=== PATIENT | male | born 1985 | race African-American/Black ===

== ENCOUNTER 2020-03-30 02:58 | Emergency (ER) | payer MEDICAID ==
[~2020-03-30] VITALS: Ht 167.6 cm; Wt 79.4 kg
[~2020-03-30 02:58] MED LIST: AUGMENTIN 875-1 EAC1 ORAL; IBUPROFEN600 MG ORAL; NEXAFED30 MG ORAL; NORCO 5-325 TA1 EAC1 ORAL
--- NOTE | 2020-03-30 03:03 | Emergency Room Report ---
History of Present Illness General Chief Complaint: alcohol intoxication Source: Patient Present Illness HPI Patient is a 34-year-old male brought in by EMS for altered mental status. Patient reports drinking alcohol and taking multiple drugs earlier in the day. According to EMS patient had been unable to ambulate. He was brought in after ringing the doorbell of somebody who called 911. Patient was noted to be awake and alert. Allergies: Coded Allergies: No Known Allergies (Unverified , 05/16/16) Patient History Past Medical History: see triage record Reviewed Nursing Documentation: PMH: Agreed; PSxH: Agreed Review of Systems All Other Systems: negative except mentioned in HPI Physical Exam General Appearance: well appearing, no apparent distress, alert, GCS 15, non- toxic Head: normocephalic, atraumatic ENT: hearing grossly normal, normal voice Neck: full range of motion, supple Respiratory: lungs clear, normal breath sounds, no respiratory distress, speaking full sentences Gastrointestinal: normal inspection, soft Musculoskeletal: no calf tenderness Neurologic: normal gait Psychiatric: mood/affect normal Skin: no rash Medical Decision Making Diagnostic Impression: Primary Impression: Polysubstance abuse ER Course Patient was noted to be ambulatory without assistance. Patient presented for altered mental status. Differential diagnosis included was not limited to alcohol intoxication, polysubstance abuse among others. Patient has a benign exam and does not appear to require any imaging or laboratory testing at this time.Patient states he lives in [facility]. Laboratory Tests Test 03/30/20 03:19 Urine Opiates Screen Negative (NEGATIVE) Urine Barbiturates Screen Negative (NEGATIVE) Phencyclidine (PCP) Screen Negative (NEGATIVE) Urine Amphetamines Screen Positive (NEGATIVE) H Urine Benzodiazepines Screen Negative (NEGATIVE) Urine Cocaine Screen Positive (NEGATIVE) H Urine Marijuana (THC) Screen Negative (NEGATIVE) Status: improved Disposition: HOME, SELF-CARE Condition: Rai Hussein MD Mar 30, 2020 03:03
[2020-03-30 03:05] VITALS: BP 146/104
--- NOTE | 2020-03-30 03:05 | NUR ---
ED Nurse Note: Patient brought into ED by TEDDY AGUIRRE [id number] for c/o alcohol intoxication. Per TEDDY, patient was found on someone's front lawn. Patient has no medical complaints at this time and denies any pain. No SOB, cough or CP noted. He continuously states "I did alot of drugs" naming cocaine as one of them and drank alcohol. He is aaox4. He can answer name, date, time, purpose without complication and appropriately, but is acting unruly and inappropriate towards staff/female RNs. He is making vulgar statements such as "suck my karolina", "you can go to the bathroom with me", "you'll suck it", "I'd do you", etc to female RNs. Patient is breathing normal and unlabored at this time, displays no signs of acute distress. He is ambulatory with steady gait. Patient placed in bed and verbally instructed that behavior and language is inappropriate.
--- NOTE | 2020-03-30 03:20 | NUR ---
ED Nurse Note: Patient continuously getting out of bed. All safety measures met, but patient is climbing over bed rails and is in the hallway attempting to talk to female RNs. He is not being compliant with treatment plan or staff directions. Patient placed back in bed. Will continue to monitor.
[2020-03-30 03:40] VITALS: BP 146/104
--- NOTE | 2020-03-30 03:40 | NUR ---
ED Nurse Note: Patient was found walking out of another patient's room at this time after hearing the patient in other room scream. Patient in other rooom was not harmed, she does not wish to make report and states she is fine. Patient instructed by staff that behavior is inapprorpiate. Patient speaking loudly and stating he wants to leave. Patient walked out of ED with steady gait. AAOX4. No medical devices involved. Patient ID band removed. He was breathing normal and unlabored at time of ED departure. JULIÁN Guillen aware patient walked out of ED.
== END 2020-03-30 03:40 | disposition home or self-care (01) ==
LOC: EDUNIT# 02:58 → EDBD 02:58 → EMR 03:16
DX: F19.10 Other psychoactive substance abuse, uncomplicated (principal)
CPT/HCPCS: 80307; Z7502; 99282